=== PATIENT | female | born 1975 | race Caucasian/White ===

== ENCOUNTER 2023-09-27 23:08 | Inpatient (IN) | payer MEDICAID, SELFPAY ==
[2023-09-27 23:09] VITALS: BP 115/63; PULSE 78; RESP 16; TEMP 36.2; O2SAT 98
--- NOTE | 2023-09-27 23:21 | RAD_ITS ---
INDICATION: injury EXAMINATION/TECHNIQUE: X-RAY - XR Hip Unilateral with Pelvis when performed; AP pelvis with AP and crosstable lateral left femur COMPARISON: None FINDINGS: HIPS: Left femoral intertrochanteric fracture with cephalad displacement. Left femoral head remains aligned with the acetabulum. No evidence of pelvic fracture. PELVIC BONES: No displaced fracture, destructive or sclerotic lesions. Note that overlapping bowel shadows may however obscure fine detail. Sacroiliac joints are unremarkable. No widening of the pubic symphysis. SOFT TISSUES: No soft tissue swelling or gas. RAD/HIP, UNI W/ Pelvis 2-3 Views IMPRESSION: Displaced left intertrochanteric fracture. Electronically Signed: Jose Alberto Brown MD at 0:15 EDT ,
--- NOTE | 2023-09-27 23:21 | EDS_ITS ---
HPI History of Present Illness Chief Complaint: Fall Informant: patient and spouse/S.O. Narrative Narrative: 47-year-old female presenting to the emergency room with left hip pain. Patient was down at rib fest when her daughter bumped into significant other who then bumped into her and she fell down onto the left hip. She notes some abrasions to the left elbow. She notes pain in the left hip and is unable to bear weight. states he believes she dislocated her hip. She has been consuming alcohol most of the evening. She last had solid food intake about 2 to 3 hours ago. Patient is not a patient of any local orthopedist [facility] Medical History (Updated 09/28/23 @ 00:[address] Katie Darling MD) Seizure in childhood Tobacco use Alcohol abuse Kidney stones COPD (chronic obstructive pulmonary disease) Hypertension Home Medications ?Medication ?Instructions ?Recorded ?Last Taken ?Type NK 09/28/23 Unknown History Allergy/AdvReac Type Severity Reaction Status Date / Time [place] And Derivatives AdvReac Itching Verified 09/27/23 23:09 tramadol (From Ultram) AdvReac Rash Verified 09/27/23 23:09 Family History (Updated 09/28/23 @ 00:[address] Katie Darling MD) Mother CAD (coronary artery disease) COPD (chronic obstructive pulmonary disease) Heart disease Hypertension Myocardial infarction Father Alcoholic cirrhosis of liver Alcohol abuse Surgical History (Updated 09/28/23 @ 00:[address] Katie Darling MD) History of hysterectomy Social History (Updated 09/28/23 @ 00:[address] Katie Darling MD) household members: family Smoking Status: Current every day smoker tobacco type: cigarettes Smoking packs per day: 1 Smoking cigarettes per day: 20.0 alcohol intake: current alcohol intake frequency: 3 or more drinks per day details: Notes at least 2-3, 12 ounce beers daily. substance use type: does not use ROS ROS ED Constitutional Constitutional ED: Denies chills, fever(s) or weight loss Eyes Eyes: Denies change in vision or diplopia ENT ENT ED: Denies ear pain, rhinorrhea or sore throat Cardiovascular Cardiovascular: Denies chest pain, orthopnea, palpitations or racing heartbeat Respiratory/Chest Respiratory/Chest: Denies cough, dyspnea or orthopnea Gastrointestinal Gastrointestinal: Denies abdominal pain, diarrhea, nausea or vomiting Genitourinary Genitourinary ED: Denies dysuria, hematuria or urinary frequency Musculoskeletal Musculoskeletal: Reports other Details: Left hip pain ; Denies arthralgias, back pain, myalgias or neck pain Integumentary Reports Abrasions; Denies abscess or rash Neurologic Neurologic: Denies headache(s) or weakness Psychiatric Psychiatric: Denies anxiety, depression, suicidal ideation or suicidal thoughts Endocrine Endocrinology: Denies polydipsia, polyphagia or polyuria Allergic/Immunologic Allergic/Immunologic ED: Denies mouth swelling, tongue swelling or urticaria EXAM Physical Exam Const Vital Signs: 09/27/23 23:09 09/27/23 23:38 Temperature 97.1 F L Temperature Source Temporal Pulse Rate 78 Respiratory Rate 16 Blood Pressure 115/63 Blood Pressure Mean 80 Pulse Ox 98 Oxygen Delivery Method Room Air Room Air Positive well nourished and well developed General Appearance ED: well developed HEENT Reports normocephalic, head/scalp atraumatic and moist mucous membranes Eyes PERRL and EOMs intact bilaterally Neck no lymphadenopathy, supple and no JVD Resp normal respiratory effort and clear to auscultation bilaterally Cardio regular rate, regular rhythm and no murmurs GI normal to inspection, nondistended, normoactive bowel sounds and non-tender Palpation: soft Back/Spine no CVA tenderness and normal ROM Extremity Extremity Narrative: Superficial abrasions to the left elbow. Patient is pain over the left hip. Normal dorsalis pedis posterior tibial pulse. She is able to wiggle the toes. General Extremety ED: Negative for edema General Extremity: Negative for edema Neuro oriented x3 and CN's II-XII intact bilaterally Neuro Narrative: Patient had slurred speech and a neuroexam consistent with acute alcohol intoxication Sensorium / Orientation: alert Motor Exam: strength 5/5 throughout Psych mental status grossly normal Mood & Affect: Negative for depressed or tearful Skin no rashes or lesions noted and no wounds MDM MDM MDM Narrative Medical decision making narrative: Differential diagnosis includes but not limited to hip contusion traumatic bursitis fracture dislocation alcohol intoxication My independent interpretation of the plain films of left hip and pelvis is a displaced left intertrochanteric hip fracture. Preoperative labs will be obtained including alcohol level. Her EKG is a normal sinus rhythm. I spoke with both on-call orthopedics Dr. Mock and her hospitalist Dr. Darling. Plan would be for surgery in the morning. Dr. Mock called back and spoke to me requesting a CT of the hip for possible pathologic fracture. I put the indication on the CT rule out pathologic fracture. The radiologist specifically states No aggressive osseous lesion. Therefore the patient will be admitted here. History & Record Review Discussion w/independent historian: Patient Lab Data Attestation: I reviewed the patient's lab results. Labs: Laboratory Results - last 24 hr 09/27/23 23:40 WBC 9.8 RBC 4.48 Hgb 14.5 Hct 43.5 MCV 97.1 MCH 32.4 H MCHC 33.3 RDW Std Deviation 44.6 H RDW Coeff of Fahad 12.3 Plt Count 243 MPV 11.0 Immature Gran % (Auto) 0.200 Neut % (Auto) 43.8 L Lymph % (Auto) 49.5 H [place] % (Auto) 4.4 Eos % (Auto) 0.9 Baso % (Auto) 1.2 H Absolute Neuts (auto) 4.3 Absolute Lymphs (auto) 4.84 H Nucleated RBC % 0 PT 11.7 INR 0.9 APTT 23.3 L Sodium 137 Potassium 3.6 Chloride 104 Carbon Dioxide 23.0 Anion Gap 10 BUN 9 Creatinine 0.84 Estim Creat Clear Calc 55.86 Est GFR (MDRD) Af Amer 93 Est GFR (MDRD) Non-Af 77 BUN/Creatinine Ratio 10.7 Glucose 105 Calcium 8.8 Phosphorus 3.4 Magnesium 2.3 Total Bilirubin 0.40 Direct Bilirubin 0.14 AST 28 ALT 23 Alkaline Phosphatase 74 Total Protein 7.3 Albumin 4.0 Globulin 3.3 Serum , Qual NEGATIVE Ethyl Alcohol 294.0 Radiography Diagnostic Testing: Clinical Impression(s) from Imaging Studies Hip/Pelvis X-Ray 09/27/23 23:21 IMPRESSION: Displaced left intertrochanteric fracture. Electronically Signed: Jose Alberto Brown MD at 0:15 EDT , Clinical Impression(s) from Imaging Studies Hip/Pelvis X-Ray 09/27/23 23:21 IMPRESSION: Displaced left intertrochanteric fracture. Electronically Signed: Jose Alberto Brown MD at 0:15 EDT , CT LEFT LOWER EXTREMITY CLINICAL INDICATION: FALL TECHNIQUE: Axial CT images of the LEFT lower extremity was performed without IV contrast material. Coronal and sagittal reformats were provided. The protocol utilizes one or more of the following dose reduction techniques: automated exposure control, adjustment of mA and/or kV according to patient size,and/or use of iterative reconstruction technique. RADIATION DOSAGE (If Supplied By Facility): CTDIvol = ( 12.23 ) mGy, DLP = ( 323.61 ) mGycm COMPARISON: None FINDINGS: Soft Tissues: Left gluteus medius muscular thickening, partially from laxity due to cephalad displacement of bone, with likely possible small intramuscular hematoma. No subcutaneous emphysema. No radiodense soft tissue foreign body. Bones: Left femoral intertrochanteric fracture with mild comminution at the lesser trochanter and cephalad displacement. Left femoral head remains aligned with the acetabulum. Normal pubic symphysis and left sacroiliac joint alignment. No aggressive osseous lesion. IMPRESSION: Intertrochanteric left femoral fracture with cephalad displacement Electronically Signed: Jose Alberto Brown MD at 2:19 EDT Reading Location ID and State: [facility] / [place] Tel , Service support , EKG Initial EKG: Attestation: I personally reviewed and interpreted this EKG as follows: Comments: Normal sinus rhythm ventricular rate of 73 bpm Management Discussion w/another healthcare provider: Hospitalist (Dr. Darling) and Casino Host (Dr Karoline Mock) Discharge Plan Dx/Rx/DC Orders Clinical Impression: Fall, Abrasion of elbow, left, Alcohol intoxication, Closed intertrochanteric fracture of left femur Disposition Disposition: Acute Care Hospital [facility]
--- NOTE | 2023-09-27 23:33 | EKG12_ITS ---
Test Reason : FALL Blood Pressure : / mmHG Vent. Rate : 073 BPM Atrial Rate : 073 BPM P-R Int : 150 ms QRS Dur : 066 ms QT Int : 410 ms P-R-T Axes : 080 082 086 degrees QTc Int : 451 ms Normal sinus rhythm Septal infarct , age undetermined Abnormal ECG Confirmed by MINDY HERRING, JIM ([id number]), health editor MECHELLE LUCAS ([id number]) on 09/29/2023 6:54:21 AM Referred By: Confirmed By:JIM GUILLEN MD
[2023-09-27 23:45] VITALS: BMI 16.8
[2023-09-27] MEDS: Morphine 4 MG/ML Syringe IV (23:48)
[2023-09-27] MEDS: Ondansetron 4 MG/2 ML Vial IV (23:48)
[2023-09-28] VITALS (15 sets, daily range): BP systolic 133–173; BP diastolic 66–114; PULSE 68–93; RESP 14–18; TEMP 36.4–37.1; O2SAT 92–100; BMI 16.8
[2023-09-28 00:03] LABS: Absolute Lymphocyte Count 4.84 X10^3/uL (0.83-4.51); Absolute Neutrophil Count 4.3 X10^3/uL (2.0-7.7); Basophil# 0.12 X10^3/uL; Basophil% 1.2 % (0-1); Eosinophil# 0.09 X10^3/uL; Eosinophils% 0.9 % (0-5); Hematocrit 43.5 % (37-47); Hemoglobin 14.5 g/dL (12.0-15.0); Lymphocyte # 4.84 X10^3/ul (0.83-4.51); Lymphocyte % 49.5 % (19-41); Mean Corp Hgb Conc 33.3 g/dL (32-36); Mean Corpuscular Hgb 32.4 pg (27.0-32.0); Mean Corpuscular Volume 97.1 fL (81-99); Monocyte# 0.43 X10^3/uL; Monocyte% 4.4 % (0-10); NRBC Flagged by Analyzer 0 % (0-5); Neutrophil # 4.28 X10^3/uL (2.7-7.7); Neutrophil % 43.8 % (47-70); Platelet Count 243 K/mm3 (150-450); RBC Distribution Width CV 12.3 % (11.6-14.6); RBC Distribution Width SD 44.6 fl (35.1-43.9); Red Blood Count 4.48 M/mm3 (4.2-5.4); White Blood Count 9.8 K/mm3 (4.4-11.0)
[2023-09-28 00:26] LABS: International Normalized Ratio 0.9; Partial Thromboplast Time 23.3 Seconds (24.1-36.2); Prothrombin Time (Protime)PT. 11.7 SECONDS (11.7-14.9)
--- NOTE | 2023-09-28 00:26 | HP.PCM.HOS_ITS ---
HPI - General General Date of Admission: 09/28/23 Date of Service: 09/28/23 Chief Complaint: Fall, intractable L hip pain. HPI Narrative The patient is a 47 y/o F w/ PMHx: Seizure disorder in her youth, recently per her diagnosed HTN not on regimen, COPD, Tobacco use, Hx Nephrolithiasis, EtOH abuse (2-3, 12 ounces beers daily) who presents to the [facility] ED on 09/28/23 with history of mechanical fall unfortunately while she was down at the rib festival at the [employer] was bumped into and fell down onto her left hip with significant debility and severe intractable pain following with inability to bear weight with significant alcohol intake reported at the event. Given significant debility, inability bear weight and intractable pain prompted ED evaluation. Patient notes currently pain 7-8 out of 10 in severity. She notes pain is more sharp and severe with any movement of her left lower extremity. Patient recently moved back to [place], [place] approximately 2 months prior and is yet established with any primary care physician. She is currently not taking any medications. Workup in the ED included T97.1, heart rate 78, BP 115/63, respiratory rate 16, 98% on room air, CBC with WC 9.8, hemoglobin 14.5, platelet 243 with lymphocytosis, pending coags and CMP as well as test and ethyl alcohol level upon requested evaluation of patient, plain film of the left hip and pelvis with a displaced left intertrochanteric fracture. In the ED patient ministered Zofran 4 mg IV x 1 and morphine 4 mg IV x 1. ED discussed case with orthopedic surgeon Dr. Mock and he recommended CT of the hip to assure no evidence of any pathological fracture. If this is the case patient he notes will need to be transferred from the ED to tertiary facility otherwise patient will be admitted to [facility] for further treatment and evaluation of hip fracture. [facility] Medical History (Updated 09/28/23 @ 00:[address] Katie Darling MD) Seizure in childhood Tobacco use Alcohol abuse Kidney stones COPD (chronic obstructive pulmonary disease) Hypertension Home Medications ?Medication ?Instructions ?Recorded ?Last Taken ?Type NK 09/28/23 Unknown History Allergy/AdvReac Type Severity Reaction Status Date / Time [place] And Derivatives AdvReac Itching Verified 09/27/23 23:09 tramadol (From Ultram) AdvReac Rash Verified 09/27/23 23:09 Family History (Updated 09/28/23 @ 00:[address] Katie Darling MD) Mother CAD (coronary artery disease) COPD (chronic obstructive pulmonary disease) Heart disease Hypertension Myocardial infarction Father Alcoholic cirrhosis of liver Alcohol abuse Surgical History (Updated 09/28/23 @ 00:[address] Katie Darling MD) History of hysterectomy Social History (Updated 09/28/23 @ 00:[address] Katie Darling MD) household members: family Smoking Status: Current every day smoker tobacco type: cigarettes Smoking packs per day: 1 Smoking cigarettes per day: 20.0 alcohol intake: current alcohol intake frequency: 3 or more drinks per day details: Notes at least 2-3, 12 ounce beers daily. substance use type: does not use ROS ROS Narrative Admission Review of Systems: CONSTITUTIONAL: No weight loss, fever, chills, + weakness or fatigue. HEENT: Eyes: No visual loss, blurred vision, double vision or yellow sclerae. Ears, Nose, Throat: No hearing loss, sneezing, congestion, runny nose or sore throat. SKIN: No rash or itching, lesions, wounds. CARDIOVASCULAR: No chest pain, chest pressure or chest discomfort, palpitations, edema, orthopnea, syncopal events. RESPIRATORY: No shortness of breath, cough or sputum, wheezing, hemoptysis. GASTROINTESTINAL: No anorexia, nausea, vomiting or diarrhea, abdominal pain, melena, BRBPR. GENITOURINARY: No dysuria, frequency, urgency or retention. NEUROLOGICAL: No headache, dizziness, syncope, paralysis, ataxia, numbness or tingling in the extremities, focal weakness, change in bowel or bladder control, seizure. MUSCULOSKELETAL: + muscle, back pain, joint pain or stiffness. HEMATOLOGIC: No anemia, bleeding or bruising. LYMPHATICS: No enlarged nodes. No history of splenectomy. PSYCHIATRIC: No history of depression or anxiety. ENDOCRINOLOGIC: No reports of sweating, cold or heat intolerance. No polyuria or polydipsia. ALLERGIES: No history of asthma, hives, eczema or rhinitis. Vital Signs Vital Signs Vital Signs: 09/27/23 23:09 09/27/23 23:38 Temperature 97.1 F L Temperature Source Temporal Pulse Rate 78 Respiratory Rate 16 Blood Pressure 115/63 Blood Pressure Mean 80 Pulse Ox 98 Oxygen Delivery Method Room Air Room Air Weight Weight: 95 lb 3.835 oz Body Mass Index (BMI) 16.8 Physical Exam Narrative Physical Examination: General: Awake, alert, oriented x 3 and cooperative, laying in the ED bed, notes pain to the hip 8 out of 10 in severity. Skin: Normal color, normal turgor, no icterus, no cyanosis except various abrasions, ecchymoses with recent fall. HEENT: AT/NC, EOMI, PERRLA, mildly dry MM, no carotid bruits or JVD noted. Lungs: Mildly diminished, greater bases, proper effort, no rales, ronchi or wheezing. Heart: Regular rate and rhythm; no gallop, rub audible. Abdomen: Soft, thin habitus, NTTP, ND, distant normal BS, no appreciated HSM. Extremities: No cyanosis, no clubbing, peripheral pulses intact, left hip externally rotated. Neurological: Patient awake, alert, oriented as noted, cognitive function intact; pupils equally reactive to light and accommodation, cranial nerves grossly normal, moving all 4 extremities except left lower extremity extremely limited but able to move toes given fall with left hip fracture, strength accordingly severely globally decreased. Psychiatric: Affect appears uncomfortable, fatigued, no acute evidence of depressive or anxiety feelings. Results Lab / Micro Data 09/27/23 23:40 09/27/23 23:40 Labs: Laboratory Results - last 24 hr 09/27/23 23:40: WBC 9.8, RBC 4.48, Hgb 14.5, Hct 43.5, MCV 97.1, MCH 32.4 H, MCHC 33.3, RDW Std Deviation 44.6 H, RDW Coeff of Fahad 12.3, Plt Count 243, MPV 11.0, Immature Gran % (Auto) 0.200, Neut % (Auto) 43.8 L, Lymph % (Auto) 49.5 H, [place] % (Auto) 4.4, Eos % (Auto) 0.9, Baso % (Auto) 1.2 H, Absolute Neuts (auto) 4.3, Absolute Lymphs (auto) 4.84 H, Nucleated RBC % 0 Imaging Radiology Impression Hip/Pelvis X-Ray 09/27/23 23:21 IMPRESSION: Displaced left intertrochanteric fracture. Electronically Signed: Jose Alberto Brown MD at 0:15 EDT Reading Location ID and State: [facility], [id number] / [place] Tel , Service support , Assessment & Plan Assessment/Plan (1) Closed intertrochanteric fracture of left femur: PLAN: Plan The patient is a 47 y/o F w/ PMHx: Seizure disorder in her youth, recently per her diagnosed HTN not on regimen, COPD, Tobacco use, Hx Nephrolithiasis, EtOH abuse (2-3, 12 ounces beers daily) who presents to the [facility] ED on 09/28/23 with history of mechanical fall unfortunately [facility] was [facility] and fell down onto her left hip with significant debility and severe intractable pain following with inability to bear weight with significant alcohol intake reported at the event. Given significant debility, inability bear weight and intractable pain prompted ED evaluation. #1. Left hip pain s/p mechanical fall w/ left intertrochanteric hip fracture: Plain film noting left intertrochanteric hip fracture. Orthopedic surgery consulted from ED and given appearance they are concerned that it could potentially be a pathologic fracture thus CT has been requested of the hip and if there is no evidence of any pathologic fracture that would require tertiary facility transfer per discussion with orthopedic surgery then would plan to admit to [facility], maintain NPO, continue gentle IVFs, riggs placement, monitor I/Os, frequent positioning, fall precautions, PRN pain, anti-emetic regimen. PT/OT following operative intervention. CM consulted for discharge planning. Per NSQIP guidelines patient is low risk for perioperative cardiac event, agree with progression to OR for operative intervention if CT hip without acute concerning findings that would require transfer to tertiary facility. EKG with SR with nospecific changes without acute evidence of ischemia. #2. Suspected acute alcohol intoxication w/ EtOH abuse: Ethyl alcohol level pending upon evaluation but from discussion patient with significant alcohol intake during the rib festival and she reports at least 2 to 312 ounce beers daily but denies any alcohol withdrawal symptoms when she goes without. Will aggressively hydrate, will obtain magnesium and phosphorus levels, will maintain on CIWA protocol and placed on thiamine/folic acid/multivitamin. #3. Chronic COPD: Patient is not on any medications, will maintain in the interim for maximization on ATC budesonide therapy, PRN albuterol, HOB, IS parameters. #4. Chart reported history hypertension: Patient does admit to a history of hypertension but is not on any medication, currently BP normal range, will have IV hydralazine in interim and if it is elevated we will add regimen and of course she will need to establish with PCP in [place] to follow at discharge. #5. Seizure disorder, noted in her youth: Patient reports a seizure at the age of 15 which from her description sounds as though it was a grand mal seizure but she is never had any other seizure activity and is not on antiepileptic medication. #6. Tobacco Abuse: Encouraged cessation, smokes 1/2-1 ppd, inpatient consultation per RT, NR if desired. #7. DVT prophylaxis: SCDs, hold chemoprophylaxis for planned operative intervention. Charges/Coding Visit Charges Inpatient E&M: 69763 Init Hosp L3
[2023-09-28 00:30] LABS: AST(SGOT) 28 U/L (15-37); Alanine Aminotransfer ALT/SGPT 23 U/L (13-56); Alkaline Phosphatase 74 U/L (45-117); Anion Gap 10 (5-15); BUN 9 mg/dL (7-18); BUN/Creat Ratio 10.7 RATIO (10-20); Bilirubin, Direct 0.14 mg/dL (0.00-0.30); Calcium,Total 8.8 mg/dL (8.5-10.1); Chloride 104 mmol/L (98-107); Creatinine, Serum 0.84 mg/dL (0.55-1.02); EST Glomerular Filtration Rate 77 mL/min (>60); Est Glom Filt Rate - Afr Amer 93 mL/min (>60); Estimated Creatinine Clearance 55.86 ml/min; Globulin 3.3 g/dL (2.2-4.2); Glucose 105 mg/dL (74-106); Potassium 3.6 mmol/L (3.5-5.1); Protein, Total 7.3 g/dL (6.4-8.2); Sodium Level 137 mmol/L (136-145)
--- NOTE | 2023-09-28 00:37 | CT_ITS ---
CT LEFT LOWER EXTREMITY CLINICAL INDICATION: FALL TECHNIQUE: Axial CT images of the LEFT lower extremity was performed without IV contrast material. Coronal and sagittal reformats were provided. The protocol utilizes one or more of the following dose reduction techniques: automated exposure control, adjustment of mA and/or kV according to patient size,and/or use of iterative reconstruction technique. RADIATION DOSAGE (If Supplied By Facility): CTDIvol = ( 12.23 ) mGy, DLP = ( 323.61 ) mGycm COMPARISON: None FINDINGS: Soft Tissues: Left gluteus medius muscular thickening, partially from laxity due to cephalad displacement of bone, with likely possible small intramuscular hematoma. No subcutaneous emphysema. No radiodense soft tissue foreign body. Bones: Left femoral intertrochanteric fracture with mild comminution at the lesser trochanter and cephalad displacement. Left femoral head remains aligned with the acetabulum. Normal pubic symphysis and left sacroiliac joint alignment. No aggressive osseous lesion. CT/Extremity Lower without Contra IMPRESSION: Intertrochanteric left femoral fracture with cephalad displacement Electronically Signed: Jose Alberto Brown MD at 2:19 EDT ,
[2023-09-28 00:44] LABS: Internal QC Validated? YES +Cl - CLEAR BKGD; Pregnancy, Serum, hCG Quali. NEGATIVE Negative; Record Kit Lot#, Serum Preg. 735774
--- NOTE | 2023-09-28 00:52 | RAD_ITS ---
INDICATION: PRE OP EXAMINATION/TECHNIQUE: X-RAY - XR Chest 1 View COMPARISON: December 09, 2007. FINDINGS: LINES/DEVICES: None. LUNGS: Lungs symmetrically hyperexpanded and hyperlucent with coarsened interstitium. No consolidation, edema or effusion. No pneumothorax. MEDIASTINUM AND CARDIOVASCULAR STRUCTURES: Cardiac silhouette not enlarged. BONES AND SOFT TISSUES: Unremarkable. RAD/Chest 1 View IMPRESSION: Chronic obstructive pulmonary disease. No radiographic evidence of acute cardiopulmonary process. Electronically Signed: Jose Alberto Brown MD at 3:17 EDT ,
[2023-09-28] MEDS: Morphine 2 MG/ML Syringe IV (01:19)
[2023-09-28 01:25] LABS: Magnesium 2.3 mg/dL (1.6-2.6); Phosphorus 3.4 mg/dL (2.5-4.9)
[2023-09-28] MEDS: Morphine 4 MG/ML Syringe IV ×5 (04:06→17:01)
[2023-09-28] MEDS: 0.9% Normal Saline (1000mL) 1,000 ML 999 ML IV (04:07)
[2023-09-28 05:09] LABS: Absolute Lymphocyte Count 3.18 X10^3/uL (0.83-4.51); Absolute Neutrophil Count 8.6 X10^3/uL (2.0-7.7); Basophil# 0.11 X10^3/uL; Basophil% 0.9 % (0-1); Eosinophil# 0.03 X10^3/uL; Eosinophils% 0.2 % (0-5); Hematocrit 38.6 % (37-47); Hemoglobin 12.6 g/dL (12.0-15.0); Lymphocyte # 3.18 X10^3/ul (0.83-4.51); Lymphocyte % 24.8 % (19-41); Mean Corp Hgb Conc 32.6 g/dL (32-36); Mean Platelet Vol. 11.4 fl (6.2-12.0); Monocyte# 0.89 X10^3/uL; Monocyte% 6.9 % (0-10); NRBC Flagged by Analyzer 0 % (0-5); Neutrophil # 8.57 X10^3/uL (2.7-7.7); Neutrophil % 66.7 % (47-70); Platelet Count 218 K/mm3 (150-450); RBC Distribution Width CV 12.2 % (11.6-14.6); RBC Distribution Width SD 44.4 fl (35.1-43.9); Red Blood Count 3.94 M/mm3 (4.2-5.4); White Blood Count 12.8 K/mm3 (4.4-11.0)
[2023-09-28 05:50] LABS: ALB/GLOB Ratio 1.2 RATIO (0.9-2.4); AST(SGOT) 28 U/L (15-37); Alanine Aminotransfer ALT/SGPT 25 U/L (13-56); Albumin, Serum 3.7 g/dL (3.2-5.0); Alkaline Phosphatase 74 U/L (45-117); Anion Gap 9 (5-15); BUN 8 mg/dL (7-18); BUN/Creat Ratio 10.9 RATIO (10-20); Calcium,Total 8.6 mg/dL (8.5-10.1); Chloride 108 mmol/L (98-107); Creatinine, Serum 0.74 mg/dL (0.55-1.02); EST Glomerular Filtration Rate 89 mL/min (>60); Est Glom Filt Rate - Afr Amer 108 mL/min (>60); Estimated Creatinine Clearance 63.26 ml/min; Globulin 3.1 g/dL (2.2-4.2); Glucose 95 mg/dL (74-106); Potassium 3.8 mmol/L (3.5-5.1); Protein, Total 6.8 g/dL (6.4-8.2); Sodium Level 139 mmol/L (136-145)
[2023-09-28] MEDS: 0.9% Normal Saline (1000mL) 1,000 ML 100 ML IV (06:10)
--- NOTE | 2023-09-28 07:44 | PN.HOSP_ITS ---
Reason for Visit Reason for Visit: Diagnoses Displaced intertrochanteric fracture of left femur, initial encounter for closed fracture (09/28/23) Objective Data Objective Data Vital Signs: Vital Signs Temp Pulse Resp BP Pulse Ox O2 Del Method 98 F 68 16 133/76 H 95 Room Air 09/28/23 01:09 09/28/23 01:09 09/28/23 02:50 09/28/23 01:09 09/28/23 07:38 09/28/23 07:38 Oxygen Delivery Method Room Air Weight: 95 lb 0.308 oz Body Mass Index (BMI) 16.8 Intake & Output: Intake and Output for Last 24 Hours 09/26/23 09/27/23 09/28/23 23:59 23:59 23:59 Intake Total 1000 / 1000 Output Total 800 / 800 Balance 200 / 200 Lab / Micro Data 09/28/23 04:20 09/28/23 04:20 Labs: Laboratory Results - last 24 hr 09/27/23 23:40: WBC 9.8, RBC 4.48, Hgb 14.5, Hct 43.5, MCV 97.1, MCH 32.4 H, MCHC 33.3, RDW Std Deviation 44.6 H, RDW Coeff of Fahad 12.3, Plt Count 243, MPV 11.0, Immature Gran % (Auto) 0.200, Neut % (Auto) 43.8 L, Lymph % (Auto) 49.5 H, Forrest % (Auto) 4.4, Eos % (Auto) 0.9, Baso % (Auto) 1.2 H, Absolute Neuts (auto) 4.3, Absolute Lymphs (auto) 4.84 H, Nucleated RBC % 0, PT 11.7, INR 0.9, APTT 23.3 L, Sodium 137, Potassium 3.6, Chloride 104, Carbon Dioxide 23.0, Anion Gap 10, BUN 9, Creatinine 0.84, Estim Creat Clear Calc 55.86, Est GFR (MDRD) Af Amer 93, Est GFR (MDRD) Non-Af 77, BUN/Creatinine Ratio 10.7, Glucose 105, Calcium 8.8, Phosphorus 3.4, Magnesium 2.3, Total Bilirubin 0.40, Direct Bilirubin 0.14, AST 28, ALT 23, Alkaline Phosphatase 74, Total Protein 7.3, Albumin 4.0, Globulin 3.3, Serum , Qual NEGATIVE, Ethyl Alcohol 294.0 09/28/23 01:52: Blood Type A POSITIVE, Antibody Screen NEGATIVE 09/28/23 04:20: WBC 12.8 H, RBC 3.94 L, Hgb 12.6, Hct 38.6, MCV 98.0, MCH 32.0, MCHC 32.6, RDW Std Deviation 44.4 H, RDW Coeff of Fahad 12.2, Plt Count 218, MPV 11.4, Immature Gran % (Auto) 0.500, Neut % (Auto) 66.7, Lymph % (Auto) 24.8, Forrest % (Auto) 6.9, Eos % (Auto) 0.2, Baso % (Auto) 0.9, Absolute Neuts (auto) 8.6 H, Absolute Lymphs (auto) 3.18, Nucleated RBC % 0, Sodium 139, Potassium 3.8, Chloride 108 H, Carbon Dioxide 22.0, Anion Gap 9, BUN 8, Creatinine 0.74, Estim Creat Clear Calc 63.26, Est GFR (MDRD) Af Amer 108, Est GFR (MDRD) Non-Af 89, BUN/Creatinine Ratio 10.9, Glucose 95, Calcium 8.6, Total Bilirubin 0.50, AST 28, ALT 25, Alkaline Phosphatase 74, Total Protein 6.8, Albumin 3.7, Globulin 3.1, Albumin/Globulin Ratio 1.2 Radiography Diagnostic Testing: Radiology Impression Hip/Pelvis X-Ray 09/27/23 23:21 IMPRESSION: Displaced left intertrochanteric fracture. Electronically Signed: Jose Alberto Brown MD at 0:15 EDT Reading Location ID and State: [facility] / [place] Tel , Service support , Lower Extremity CT 09/28/23 00:37 IMPRESSION: Intertrochanteric left femoral fracture with cephalad displacement Electronically Signed: Jose Alberto Brown MD at 2:19 EDT Reading Location ID and State: [facility] / [place] Tel , Service support , Chest X-Ray 09/28/23 00:52 IMPRESSION: Chronic obstructive pulmonary disease. No radiographic evidence of acute cardiopulmonary process. Electronically Signed: Jose Alberto Brown MD at 3:17 EDT , Physical Exam Narrative Seen and examined. She works in [email or web address] and states she was smoking a pack per day since since age of 11 but recently increased to 2 pack/day. History of COPD. Physical exam General: Alert, Oriented x3, Cooperative HEENT: Atraumatic, PERRLA, EOMI, Normocephalic Oral: No Gingival or Mucosal Lesions/ Ulcerations Neck: Supple, No JVD, Negative Carotid Bruits Chest wall/Lungs: Air entry diminished in bilateral lung bases. Bilateral fine expiratory rhonchi. Cardiovascular: Regular rate, Regular Rhythm, Normal S1, Normal S2, No M/G/R Abdomen: Bowel Sounds Present, Soft, Non Tender, Non-Distended : No dysuria. No renal angle tenderness. No suprapubic tenderness. Extremities: No edema, Capillary Refill Less than 3 Seconds Skin: No rashes, No breakdown Musculoskeletal: Tenderness over left hip groin region, greater trochanter and ischial region. LLE flexed and externally rotated. Neurological: Cranial nerves II-XII grossly intact, DTR 2+/4. No acute focal neurological deficit. Psych/Mental Status: Normal Affect, Appropriate. Assessment & Plan Assessment/Plan (1) Closed intertrochanteric fracture of left femur: PLAN: Plan The patient is a 47 y/o F was admitted with left hip pain and abrasion on left elbow after she fell down on her left hip after a festival at the [employer]. She was unable to bear weight on left. Patient also has been drinking alcohol most of the evening. #1. Left hip pain s/p mechanical fall with consequent left intertrochanteric femoral fracture with cephalad displacement: [facility] Lower extremity CT was done to rule out pathological fracture but no aggressive lesions seen. Left femoral head remains in acetabulum aligned but left femoral intertrochanteric fracture with mild comminution at the lesser trochanter and cephalad displacement. Orthopedic surgery is consulted. Supportive management for pain control, antiemetics and fall precaution. PT/OT following operative intervention. CM consulted for discharge planning. Per NSQIP guidelines patient is low risk for perioperative cardiac event, agree with progression to OR for operative intervention if CT hip without acute concerning findings that would require transfer to tertiary facility. EKG with SR with nospecific changes without acute evidence of ischemia. #2. Suspected acute alcohol intoxication w/ EtOH abuse: Ethyl alcohol level pending upon evaluation but from discussion patient with significant alcohol intake during the [place] and she reports at least 2 to 312 ounce beers daily but denies any alcohol withdrawal symptoms when she goes without. Will aggressively hydrate, will obtain magnesium and phosphorus levels, will maintain on CIWA protocol and placed on thiamine/folic acid/multivitamin. #3. COPD with chronic active smoking 2 pack/day: Patient is not on any medications, advised aggressive and intensive incentive spirometry. Maintenance inhaler, as needed DuoNeb, incentive spirometry, Pep and Mucinex DM. #4. Chronic essential hypertension: Patient not on antihypertensive medication. BP 133/76, 148/70. IV hydralazine interim as needed for SBP more than 180 mmHg but if blood pressure persistently elevated will need schedule antihypertensive medication. #5. Seizure disorder, noted in her youth: Patient reports a seizure at the age of 15 which from her description sounds as though it was a grand mal seizure but she is never had any other seizure activity and is not on antiepileptic medication. #6. Tobacco Abuse: Encouraged cessation, smokes 2 pack/day on nicotine patch. Advised quitting #7. DVT prophylaxis: SCDs, hold chemoprophylaxis for planned operative intervention. Laboratory Results 09/27/23 23:40: WBC 9.8, RBC 4.48, Hgb 14.5, Hct 43.5, MCV 97.1, MCH 32.4 H, MCHC 33.3, RDW Std Deviation 44.6 H, RDW Coeff of Fahad 12.3, Plt Count 243, MPV 11.0, Immature Gran % (Auto) 0.200, Neut % (Auto) 43.8 L, Lymph % (Auto) 49.5 H, Forrest % (Auto) 4.4, Eos % (Auto) 0.9, Baso % (Auto) 1.2 H, Absolute Neuts (auto) 4.3, Absolute Lymphs (auto) 4.84 H, Nucleated RBC % 0, PT 11.7, INR 0.9, APTT 23.3 L, Sodium 137, Potassium 3.6, Chloride 104, Carbon Dioxide 23.0, Anion Gap 10, BUN 9, Creatinine 0.84, Estim Creat Clear Calc 55.86, Est GFR (MDRD) Af Amer 93, Est GFR (MDRD) Non-Af 77, BUN/Creatinine Ratio 10.7, Glucose 105, Calcium 8.8, Phosphorus 3.4, Magnesium 2.3, Total Bilirubin 0.40, Direct Bilirubin 0.14, AST 28, ALT 23, Alkaline Phosphatase 74, Total Protein 7.3, Albumin 4.0, Globulin 3.3, Serum , Qual NEGATIVE, Ethyl Alcohol 294.0 09/28/23 01:52: Blood Type A POSITIVE, Antibody Screen NEGATIVE 09/28/23 04:20: WBC 12.8 H, RBC 3.94 L, Hgb 12.6, Hct 38.6, MCV 98.0, MCH 32.0, MCHC 32.6, RDW Std Deviation 44.4 H, RDW Coeff of Fahad 12.2, Plt Count 218, MPV 11.4, Immature Gran % (Auto) 0.500, Neut % (Auto) 66.7, Lymph % (Auto) 24.8, Forrest % (Auto) 6.9, Eos % (Auto) 0.2, Baso % (Auto) 0.9, Absolute Neuts (auto) 8.6 H, Absolute Lymphs (auto) 3.18, Nucleated RBC % 0, Sodium 139, Potassium 3.8, Chloride 108 H, Carbon Dioxide 22.0, Anion Gap 9, BUN 8, Creatinine 0.74, Estim Creat Clear Calc 63.26, Est GFR (MDRD) Af Amer 108, Est GFR (MDRD) Non-Af 89, BUN/Creatinine Ratio 10.9, Glucose 95, Calcium 8.6, Total Bilirubin 0.50, AST 28, ALT 25, Alkaline Phosphatase 74, Total Protein 6.8, Albumin 3.7, Globulin 3.1, Albumin/Globulin Ratio 1.2 Charges/Coding Visit Charges Inpatient E&M: 37304 Subs Hosp L2
--- NOTE | 2023-09-28 08:00 | RAD_ITS ---
STUDY: INTRAOPERATIVE FLUOROSCOPY TECHNIQUE: The examination was performed with referring physician in attendance. Under fluoroscopic observation, fluoroscopic images were obtained. Radiologist was not present for the study. Radiologist did not perform the procedure. This dictation is for documentation of the radiation dosage only. There is no interpretation of the images. TOTAL NUMBER OF IMAGES: 1 COMPARISON: None RADIATION DOSE: 13.15 mGy FLUOROSCOPY TIME: 109.4 seconds REASON FOR EXAM: ORIF GAMMA NAIL Female, 47 years old. FINDINGS: Fracture ORIF. RAD/Hip Min 2 Views (Portable) IMPRESSION: Fluoroscopic assistance images were obtained. Dictation for documentation purposes only. Electronically Signed: German Kahn MD at 15:28 EDT ,
--- NOTE | 2023-09-28 10:05 | CONS.ORTHO ---
HPI Consult Data Date of Consult: 09/28/23 HPI Narrative Reason for Consultation: Left hip fracture HPI Narrative: AMEYA ALLEN, is a 47 F who presents after sustaining a fall September 27, 2023. Patient was at the [employer] festival. Reportedly she was accidentally bumped into by family member and she fell hard onto her left hip. Patient does say she has seen the chiropractor over the years for bilateral hip issues. She states the right and left hip have been equally bothersome over the years. She states that they seem to go in and out for her. She denies any recent pre-existing left hip pain. She has not been using a crutch cane or walker. She denies history of cancer. She does have a smoking history of greater than 1/2 pack/day for the last 30 years. More recently she has been smoking 1 to 2 packs a day. Also she drinks 2-3 alcoholic beverages per day. Patient denies any head injury or loss of consciousness after falling yesterday. She was not able to walk. She was inebriated. She was brought to the hospital. Diagnosed with a left hip fracture. Orthopedics consulted. [facility], [facility] Medical History Seizure in childhood Tobacco use Alcohol abuse Kidney stones COPD (chronic obstructive pulmonary disease) Hypertension Home Medications ?Medication ?Instructions ?Recorded ?Last Taken ?Type NK 09/28/23 Unknown History Allergy/AdvReac Type Severity Reaction Status Date / Time [place] And Derivatives AdvReac Itching Verified 09/27/23 23:09 tramadol (From Ultram) AdvReac Rash Verified 09/27/23 23:09 Family History Mother CAD (coronary artery disease) COPD (chronic obstructive pulmonary disease) Heart disease Hypertension Myocardial infarction Father Alcoholic cirrhosis of liver Alcohol abuse Surgical History History of hysterectomy Social History household members: family Smoking Status: Current every day smoker tobacco type: cigarettes Smoking packs per day: 1 Smoking cigarettes per day: 20.0 alcohol intake: current alcohol intake frequency: 3 or more drinks per day details: Notes at least 2-3, 12 ounce beers daily. 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 Otherwise she denies recent changes to eyes ears nose or throat. She does have COPD. She does have shortness of breath and a chronic cough. Denies any problems with bowel or bladder function. Vital Signs Vital Signs Vital Signs: 09/27/23 23:09 09/27/23 23:38 09/28/23 01:09 Temperature 97.1 F L Temperature Source Temporal Pulse Rate 78 68 Respiratory Rate 16 17 Blood Pressure 115/63 133/76 H Blood Pressure Mean 80 95 Blood Pressure Source Blood Pressure Position Blood Pressure Location Pulse Ox 98 98 Oxygen Delivery Method Room Air Room Air Room Air 09/28/23 01:09 09/28/23 02:50 09/28/23 07:38 Temperature 98 F Temperature Source Pulse Rate 68 Respiratory Rate 17 16 Blood Pressure 133/76 H Blood Pressure Mean 95 Blood Pressure Source Blood Pressure Position Blood Pressure Location Pulse Ox 97 95 95 Oxygen Delivery Method Room Air Room Air 09/28/23 08:30 Temperature 98.7 F Temperature Source Oral Pulse Rate 70 Respiratory Rate 16 Blood Pressure 148/70 H Blood Pressure Mean 96 Blood Pressure Source Monitor Blood Pressure Position Supine Blood Pressure Location Left Arm Pulse Ox 96 Oxygen Delivery Method Room Air Weight Weight: 43.1 kg Body Mass Index (BMI) 16.8 Physical Exam Narrative Left hip has shortening and external rotation. Left hip has pain on palpation. She had no calf pain or swelling bilaterally. Negative Homans' sign bilaterally. He is able to plantarflex and dorsiflex toes and ankles. Skin is intact about the left hip. She does have a very slight abrasion of the left knee. She has an abrasion at her elbow covered with a bandage. She has full range of motion left elbow. No pain with resisted strength testing left elbow. Arms and legs are neurovascular intact. X-rays AP and lateral of the left hip showed a displaced comminuted intertrochanteric fracture. There was a possible subtle lucency at the region. May be related to her fracture pattern, rule out pathologic fracture CT scan of the left hip was done to check for possibility of pathologic fracture. Based on my review of the images and the radiologist review, no definitive pathologic bone was seen. Dr. Padron also had reviewed the studies and felt that there was no definitive pathologic fracture Medications, allergies, review of systems on chart, laboratory work and chest x-rays and other studies reviewed and noted Lab / Micro Data 09/28/23 04:20 09/28/23 04:20 Labs: Laboratory Results - last 24 hr 09/27/23 23:40: WBC 9.8, RBC 4.48, Hgb 14.5, Hct 43.5, MCV 97.1, MCH 32.4 H, MCHC 33.3, RDW Std Deviation 44.6 H, RDW Coeff of Fahad 12.3, Plt Count 243, MPV 11.0, Immature Gran % (Auto) 0.200, Neut % (Auto) 43.8 L, Lymph % (Auto) 49.5 H, Dickenson % (Auto) 4.4, Eos % (Auto) 0.9, Baso % (Auto) 1.2 H, Absolute Neuts (auto) 4.3, Absolute Lymphs (auto) 4.84 H, Nucleated RBC % 0, PT 11.7, INR 0.9, APTT 23.3 L, Sodium 137, Potassium 3.6, Chloride 104, Carbon Dioxide 23.0, Anion Gap 10, BUN 9, Creatinine 0.84, Estim Creat Clear Calc 55.86, Est GFR (MDRD) Af Amer 93, Est GFR (MDRD) Non-Af 77, BUN/Creatinine Ratio 10.7, Glucose 105, Calcium 8.8, Phosphorus 3.4, Magnesium 2.3, Total Bilirubin 0.40, Direct Bilirubin 0.14, AST 28, ALT 23, Alkaline Phosphatase 74, Total Protein 7.3, Albumin 4.0, Globulin 3.3, Serum , Qual NEGATIVE, Ethyl Alcohol 294.0 09/28/23 01:52: Blood Type A POSITIVE, Antibody Screen NEGATIVE 09/28/23 04:20: WBC 12.8 H, RBC 3.94 L, Hgb 12.6, Hct 38.6, MCV 98.0, MCH 32.0, MCHC 32.6, RDW Std Deviation 44.4 H, RDW Coeff of Fahad 12.2, Plt Count 218, MPV 11.4, Immature Gran % (Auto) 0.500, Neut % (Auto) 66.7, Lymph % (Auto) 24.8, Dickenson % (Auto) 6.9, Eos % (Auto) 0.2, Baso % (Auto) 0.9, Absolute Neuts (auto) 8.6 H, Absolute Lymphs (auto) 3.18, Nucleated RBC % 0, Sodium 139, Potassium 3.8, Chloride 108 H, Carbon Dioxide 22.0, Anion Gap 9, BUN 8, Creatinine 0.74, Estim Creat Clear Calc 63.26, Est GFR (MDRD) Af Amer 108, Est GFR (MDRD) Non-Af 89, BUN/Creatinine Ratio 10.9, Glucose 95, Calcium 8.6, Total Bilirubin 0.50, AST 28, ALT 25, Alkaline Phosphatase 74, Total Protein 6.8, Albumin 3.7, Globulin 3.1, Albumin/Globulin Ratio 1.2 Imaging Radiology Impression Hip/Pelvis X-Ray 09/27/23 23:21 IMPRESSION: Displaced left intertrochanteric fracture. Electronically Signed: Jose Alberto Brown MD at 0:15 EDT , Lower Extremity CT 09/28/23 00:37 IMPRESSION: Intertrochanteric left femoral fracture with cephalad displacement Electronically Signed: Jose Alberto Brown MD at 2:19 EDT , Chest X-Ray 09/28/23 00:52 IMPRESSION: Chronic obstructive pulmonary disease. No radiographic evidence of acute cardiopulmonary process. Electronically Signed: Jose Alberto Brown MD at 3:17 EDT , Assessment & Plan Assessment/Plan (1) Closed intertrochanteric fracture of left femur: PLAN: Her diagnosis and treatment options regarding her left hip displaced comminuted intertrochanteric fracture discussed with her at length. She understands based on her young age, mechanism of injury, I was concerned about the possibility of a pathologic fracture. She understands based on her current x-rays and CT scan and history, most likely this is not a pathological fracture. This cannot be guaranteed however. I explained images have been reviewed by the ER physician, radiologist, myself as well as Dr. Padron. She understands we are planning to do reduction and internal fixation. She understands if this is not successful, further surgery could be warranted. She understands if there is significant osteoporosis, and/or underlying bone pathology, the fracture may not heal. Risk of surgery including but not limited to from operative or postoperative complications. Risk of anesthetic complications such as heart attacks, strokes, seizures, or . Risk of infections. Risk of damage to nerves arteries tendons. Risk of inadvertent fractures or dislocations. Risk of bone or wound healing complications. Possibility of nonunion malunion pain stiffness weakness. Possible need for further surgery such as hardware removal. Risk of DVT PE and other potential complications could lead to or disability explained. No guarantees were stated or implied. All of their questions were answered. Appropriate informed consent was obtained and signed for surgical intervention. Importance of her stopping smoking and diminishing her alcohol intake explained. She understands both of these can cause cancer. She understands that certainly smoking can delay bone healing leading to nonunions. I recommend she establish care with a primary care physician and obtain help stopping her alcohol and tobacco use. She understands and agrees. Will plan to use Ancef for preoperative antibiotic. We will plan to use aspirin postoperatively for DVT prevention.
[2023-09-28] MEDS: Budesonide Respules 0.5 MG/2 ML AMPUL.NEB. INHALATION ×2 (10:42→19:22)
[2023-09-28] MEDS: Cefazolin 1 GM/50 ML BAG IV (13:57)
--- NOTE | 2023-09-28 15:04 | OP.PCM_ITS ---
Problems Associated Problem List Diagnoses (1) Closed intertrochanteric fracture of left femur: Operative Report Date of Procedure: 09/28/23 Preoperative diagnosis: Left hip displaced intertrochanteric fracture Postoperative diagnosis: Same Title of operation: Left hip open reduction internal fixation, intramedullary nail fixation, locked Surgeon: Dr. Dion Mock [employer] Profiler: Nisreen Keith PA-C Anesthesia: General, LMA, Dr. Jean Medications: Ancef 1gm Fluids given: 500 cc EBL: 20 Indications for surgery: Patient is an 47 -year-old female sustained a hip fracture yesterday. Patient and their family explained diagnosis and treatment options. Patient evaluated by the medical services. Patient did wish to have surgery. Appropriate informed consent obtained and signed. Findings: Patient had a displaced unstable intertrochanteric hip fracture. They underwent standard reduction, internal fixation using a Mckinney short gamma nail. X-rays taken throughout. logistics assistant, physician assistant financial accountant, was utilized throughout the entire procedure. They were vital to the procedure from beginning to end. They help with patient transfer, patient padding and positioning, fracture reduction, maintenance of fracture reduction, internal fixation of implants, wound closure, bandage application, patient transfer. Without surgical technology instructor, surgical time would have been significantly increased and surgical outcome could have been less optimal. Procedure: Patient was taken to the operating room. Placed under a general anesthetic and transferred to the operating table with the help of the assistant financial accountant. With the help of the assistant financial accountant patient was prepped and padded for surgery. Operative side foot was well-padded and placed in the traction boot. Uninjured lower extremity was abducted and flexed out of harms way. MORELIA hose and SCDs utilized. Fluoroscopy was brought in. With the help of the assistant financial accountant and manipulation of the limb, reduction was nicely obtained as verified under AP lateral and oblique fluoroscopic images. . Operative hip/thigh was prepped padded draped in usual orthopedic sterile fashion for the procedure. Longitudinal incision was made just proximal to the greater trochanter. Taken through skin and subcutaneous tissue. Sharp awl was placed on the tip of the greater trochanter. Position verified under AP and lateral fluoroscopic images. This was then taken down inside the bone. Slightly bent ball-tipped guide linda was then placed from the tip of the greater trochanter into the intra-medullary canal of the femur. Its position verified radiographically. Reamer was then done over the tip of this with the help of the assistant financial accountant holding the soft tissue protector appropriately. Once reaming was done we placed the short 125? angle device over the guidepin. This was easily introduced. Guide linda removed. Ou trigger device was utilized to position a guidepin from the lateral cortex of the femur across the fracture site and into the femoral head in a good position centrally, as noted on AP lateral and oblique fluoroscopic images. This was measured. Secondary guidepin was placed anterior superiorly through the guide device to avoid rotation of the femoral head and neck. Appropriate reaming done. Appropriate length lag screw was placed from the lateral cortex of the femur into the femoral head. A small amount of the screw was noted to be protruding laterally as planned. No cartilage penetration of the femoral head noted on any x-ray. Secondary guidepin was removed. Fracture was then compressed with the outrigger device. Proximal cap screw was placed by the assistant financial accountant seated down completely, confirmed, and then loosened one fourth turn. We then used the outrigger device to place distal cross locking screw under standard technique. This was confirmed to be of adequate length in good p osition on AP and lateral images. Outrigger device removed. Final set of AP and lateral proximal x-rays taken and saved. Incisions thoroughly irrigated. Closing by the assistant financial accountant with deep 0 Vicryl, mid layer 0 Vicryl, inverted 2-0 Vicryl, skin ashli. Puncture wounds closed with inverted 2-0 Vicryl and ashli. Xeroform 4 x 4's ABD tape applied. Patient was awoken from their anesthetic, transferred back to their own bed with the help of the assistant financial accountant and into recovery room in satisfactory condition. Patient will continue to be admitted to the hospital under the hospitalist service. This note was generated with [employer] dictation software. It may contain incorrect words, spelling, and punctuation that were not noted in checking the note before signing.
[2023-09-28] MEDS: Aspirin 81 MG TAB.CHEW PO (17:01)
[2023-09-28] MEDS: Albuterol 2.5 MG/3 ML VIAL.NEB. INHALATION (19:22)
[2023-09-28] MEDS: Famotidine 20 MG Tablet PO (19:47)
[2023-09-28] MEDS: guaiFENesin/D-Methorphan TAB.SR.12H 2 TABLET PO (19:47)
[2023-09-28] MEDS: oxyCODONE 5 MG Tablet PO (19:47)
[2023-09-28] MEDS: Acetaminophen 325 MG Tablet 650 MG PO (19:47)
[2023-09-28] MEDS: Senna/Docusate Sodium 1 Tablet 2 TABLET PO (19:47)
[2023-09-29] VITALS (8 sets, daily range): BP systolic 126–146; BP diastolic 67–91; PULSE 73–97; RESP 14–18; TEMP 36.6–36.9; O2SAT 95–100; BMI 16.8
[2023-09-29] MEDS: Acetaminophen 325 MG Tablet 650 MG PO ×3 (00:42→11:05)
[2023-09-29] MEDS: oxyCODONE 5 MG Tablet PO ×4 (00:43→17:57)
[2023-09-29] MEDS: Cefazolin 1 GM/50 ML BAG IV ×2 (06:36→11:32)
[2023-09-29] MEDS: 0.9% Saline Lock 10 ML Syringe IV ×2 (06:36→15:10)
[2023-09-29] MEDS: Albuterol 2.5 MG/3 ML VIAL.NEB. INHALATION ×2 (06:59→12:04)
[2023-09-29] MEDS: Budesonide Respules 0.5 MG/2 ML AMPUL.NEB. INHALATION (06:59)
[2023-09-29 07:06] LABS: Absolute Lymphocyte Count 2.11 X10^3/uL (0.83-4.51); Absolute Neutrophil Count 3.8 X10^3/uL (2.0-7.7); Basophil# 0.06 X10^3/uL; Basophil% 0.9 % (0-1); Eosinophil# 0.04 X10^3/uL; Eosinophils% 0.6 % (0-5); Hematocrit 32.7 % (37-47); Hemoglobin 10.5 g/dL (12.0-15.0); Lymphocyte # 2.11 X10^3/ul (0.83-4.51); Lymphocyte % 30.9 % (19-41); Mean Corp Hgb Conc 32.1 g/dL (32-36); Mean Corpuscular Hgb 32.5 pg (27.0-32.0); Mean Corpuscular Volume 101.2 fL (81-99); Mean Platelet Vol. 12.1 fl (6.2-12.0); Monocyte# 0.75 X10^3/uL; NRBC Flagged by Analyzer 0 % (0-5); Neutrophil # 3.84 X10^3/uL (2.7-7.7); Neutrophil % 56.3 % (47-70); Platelet Count 151 K/mm3 (150-450); RBC Distribution Width CV 12.3 % (11.6-14.6); RBC Distribution Width SD 46.1 fl (35.1-43.9); Red Blood Count 3.23 M/mm3 (4.2-5.4); White Blood Count 6.8 K/mm3 (4.4-11.0)
[2023-09-29 07:24] LABS: Anion Gap 6 (5-15); BUN 7 mg/dL (7-18); BUN/Creat Ratio 10.2 RATIO (10-20); Calcium,Total 8.3 mg/dL (8.5-10.1); Chloride 106 mmol/L (98-107); Creatinine, Serum 0.69 mg/dL (0.55-1.02); EST Glomerular Filtration Rate 97 mL/min (>60); Est Glom Filt Rate - Afr Amer 117 mL/min (>60); Estimated Creatinine Clearance 67.84 ml/min; Glucose 99 mg/dL (74-106); Potassium 3.9 mmol/L (3.5-5.1); Sodium Level 136 mmol/L (136-145)
[2023-09-29] MEDS: Multivitamins,Ther W-Minerals Tablet 1 TABLET PO (07:57)
[2023-09-29] MEDS: Senna/Docusate Sodium 1 Tablet 2 TABLET PO (07:57)
[2023-09-29] MEDS: Thiamine Hydrochloride 100 MG Tablet PO (07:57)
[2023-09-29] MEDS: Folic Acid 1 MG Tablet PO (07:57)
[2023-09-29] MEDS: guaiFENesin/D-Methorphan TAB.SR.12H 2 TABLET PO (07:57)
[2023-09-29] MEDS: Aspirin 81 MG TAB.CHEW PO ×2 (07:58→15:57)
[2023-09-29] MEDS: Famotidine 20 MG Tablet PO (07:58)
--- NOTE | 2023-09-29 08:06 | PN.HOSP_ITS ---
Reason for Visit Reason for Visit: Diagnoses Displaced intertrochanteric fracture of left femur, initial encounter for closed fracture (09/28/23) Subjective Subjective Feeling well. Objective Data Objective Data Vital Signs: Vital Signs Temp Pulse Resp BP Pulse Ox O2 Del Method O2 Flow Rate 36.7 C 93 18 140/70 H 99 Room Air 2 09/29/23 04:48 09/29/23 07:00 09/29/23 07:00 09/29/23 04:48 09/29/23 07:00 09/29/23 07:00 09/29/23 00:48 Oxygen Flow Rate (L/min) 2 Oxygen Delivery Method Room Air Weight: 43.1 kg Body Mass Index (BMI) 16.8 Intake & Output: Intake and Output for Last 24 Hours 09/27/23 09/28/23 09/29/23 23:59 23:59 23:59 Intake Total 2550 / 2550 Output Total 950 / 1500 1050 / 1050 Balance 1600 / 1050 -1050 / -1050 Medical Nutrition Assessment Dietitian: Malnutrition Criteria Met Start: 09/28/23 10:06 Freq: Status: Active Protocol: Document 09/28/23 10:06 SLA (Rec: 09/28/23 10:06 SLA [email or web address]) Nutrition Malnutrition Evidence of Malnutrition Exists Yes Malnutrition (severe): Acute Illness/Injury Evidenced By Suboptimal Energy Intake ( Severe),Weight Loss (Severe), Physical Changes (Moderate) Clinical Problem Acute Disease or Injury Related Malnutrition Etiology related to inadequate energy intake Signs/Symptoms as evidenced by unintended wt loss of 9.7% and po intake 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 Has generalized fat/muscle wasting throughout body. Status Active Problem Recommendation Dietitian Recommendations/Changes Rec liberal regular diet when po diet resumes. When medically able, rec 120 ml ensure plus high protein 4x /day w/ medpass Lab / Micro Data 09/29/23 06:09 09/29/23 06:09 Labs: Laboratory Results - last 24 hr 09/29/23 06:09: WBC 6.8, RBC 3.23 L, Hgb 10.5 L, Hct 32.7 L, MCV 101.2 H, MCH 32.5 H, MCHC 32.1, RDW Std Deviation 46.1 H, RDW Coeff of Fahad 12.3, Plt Count 151, MPV 12.1 H, Immature Gran % (Auto) 0.300, Neut % (Auto) 56.3, Lymph % (Auto) 30.9, [place] % (Auto) 11.0 H, Eos % (Auto) 0.6, Baso % (Auto) 0.9, Absolute Neuts (auto) 3.8, Absolute Lymphs (auto) 2.11, Nucleated RBC % 0, Sodium 136, Potassium 3.9, Chloride 106, Carbon Dioxide 24.0, Anion Gap 6, BUN 7, Creatinine 0.69, Estim Creat Clear Calc 67.84, Est GFR (MDRD) Af Amer 117, Est GFR (MDRD) Non-Af 97, BUN/Creatinine Ratio 10.2, Glucose 99, Calcium 8.3 L Radiography Diagnostic Testing: Radiology Impression Hip/Pelvis X-Ray 09/27/23 23:21 IMPRESSION: Displaced left intertrochanteric fracture. Electronically Signed: Jose Alberto Brown MD at 0:15 EDT , Hip X-Ray 09/28/23 08:00 IMPRESSION: Fluoroscopic assistance images were obtained. Dictation for documentation purposes only. Electronically Signed: German Kahn MD at 15:28 EDT , Physical Exam Const alert and no apparent distress Constitutional Narrative: afebrile. non-toxic. HEENT head/scalp atraumatic and moist oral mucous membranes Resp normal respiratory effort Assessment & Plan Assessment/Plan (1) Closed intertrochanteric fracture of left femur: PLAN: Plan Left intertrochanteric femoral fracture with cephalad displacement: * s/p mechanical fall. * s/p left hip ORIF, IM nail fixation on 09/27. * PT/OT following operative intervention. CM consulted for discharge planning. * follow up with orthopaedics as outpt. * VTE prophylaxis with aspirin 81 mg twice daily for 30 days. Acute alcohol intoxication * POA. Alcohol level 294. * pt reports to normally drink 2-3 12-ounce beers/day. * thiamine and folate * PRN lorazepam for withdrawal symptoms. Vitamin D deficiency * 25-hydroxy vitamin D level is low at 11. Goal level would be 50. Will start at 50,000 units of ergocalciferol weekly for 8 weeks. Chronic conditions: * COPD with chronic active smoking 2 pack/day: stable. follow up with pulmonary as outpt. * Chronic essential hypertension: fair control. VTE prophylaxis: ASA BID.
[2023-09-29] MEDS: Morphine 4 MG/ML Syringe IV ×2 (08:08→15:09)
--- NOTE | 2023-09-29 12:40 | CASEMGMT ---
LY CAMPA Assessment: Face to Face with pt for initial transition planning/care coordination assessment. RN LOKESH introduced self and role at [facility], pt voices understanding and consents to assessment. Pt sitting up in chair in no distress. Pt is A&O x4 and answers all questions appropriately at this time. Care providers, pharmacy, and demographics verified/updated. Admitting Dx: Fall, L Hip Fracture PCP: Kaylen, would like to switch to local PCP since she just moved recently to this area, was provided list of PCPs in-network with [facility]. Specialists: Pt Denies Preferred Pharmacy: [facility]: yes LNOK: Erin - daughter, Manny Mock - Boyfriend Living Arrangements: Pt going to boyfriends upon DC to a 2 story home with 2 steps to enter. Pt states bedroom and bathroom are on the first floor. Pt states I with ADLs and IADLs prior to fall and injury. Transportation: Pt drives self, boyfriend able to drive her until she can drive self again. DME:Nebulizer, Shower chair, Walker, Rollator, Cane, Hospital Bed, Grab bars. Denies need for other DME at this time. HHC/SNF: Hx of HHC - cannot recall what agency used. Denies Hx of SNF. Discussed DC planning and options, pt states she feels safe DC to boyfriend's home stating him and her daughter will be able to assist her. Declines HHC. Pt states she has not worked with therapy on steps yet or getting in and out of vehicle and would like to do so before discharging. Therapy made aware and will see pt later today before she goes home to work on these things. Pt states she would like a script for out-patient therapy which was provided at this time. Provided verbal list of local outpatient therapy facilities in the area, she would like to schedule herself upon DC. Pt stated she smokes 2 packs a day, drinks about 2 beers a day after work, denies use of street drugs accept for vaping occasionally. Accepted alcohol cessation resources, SW made aware. Pt states no further concerns/needs. CM to follow. Advised pt to ask CM if any further question/concerns/needs arise, voices understanding. Pt Goal: Home with outpatient therapy. Plan: Home with outpatient therapy. Rene MODI CM
--- NOTE | 2023-09-29 12:46 | CASEMGMT ---
Discharge Planning A list of PCP providers including quality and resource use data and consistent with the patient's preferred geographic region, medical needs was created from the [facility] website.? This list was provided to the RN CM. Jessi Camara, Discharge Planning Asst.
--- NOTE | 2023-09-29 12:51 | PCM.PN.ORT ---
Subjective Subjective Patient sitting at bedside. Reports her pain has been very well-managed, has very minimal pain at this time. Patient reports she has been up ambulating with therapy. Patient denies any chest pain, shortness of breath, calf pain, nausea vomiting. Patient is anticipating having to do therapy inpatient. Objective Data Objective Data Vital Signs: Vital Signs Temp Pulse Resp BP Pulse Ox O2 Del Method O2 Flow Rate 98 F 80 14 132/81 H 99 Room Air 2 09/29/23 11:27 09/29/23 12:04 09/29/23 12:04 09/29/23 11:27 09/29/23 11:27 09/29/23 11:27 09/29/23 00:48 Oxygen Flow Rate (L/min) 2 Oxygen Delivery Method Room Air Weight: 43.1 kg Body Mass Index (BMI) 16.8 Intake & Output: Intake and Output for Last 24 Hours 09/27/23 09/28/23 09/29/23 23:59 23:59 23:59 Intake Total 2550 / 2550 350 / 350 Output Total 950 / 1500 1050 / 1050 Balance 1600 / 1050 -700 / -700 Medical Nutrition Assessment Dietitian: Malnutrition Criteria Met Start: 09/28/23 10:06 Freq: Status: Active Protocol: Document 09/28/23 10:06 SHABBIR (Rec: 09/28/23 10:06 SHABBIR [id number]) Nutrition Malnutrition Evidence of Malnutrition Exists Yes Malnutrition (severe): Acute Illness/Injury Evidenced By Suboptimal Energy Intake ( Severe),Weight Loss (Severe), Physical Changes (Moderate) Clinical Problem Acute Disease or Injury Related Malnutrition Etiology related to inadequate energy intake Signs/Symptoms as evidenced by unintended wt loss of 9.7% and po 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 Has generalized fat/muscle wasting throughout body. Status Active Problem Recommendation Dietitian Recommendations/Changes Rec liberal regular diet when po diet resumes. When medically able, rec 120 ml ensure plus high protein 4x /day w/ medpass Lab / Micro Data 09/29/23 06:09 09/29/23 06:09 Labs: Laboratory Results - last 24 hr 09/29/23 06:09: WBC 6.8, RBC 3.23 L, Hgb 10.5 L, Hct 32.7 L, MCV 101.2 H, MCH 32.5 H, MCHC 32.1, RDW Std Deviation 46.1 H, RDW Coeff of Fahad 12.3, Plt Count 151, MPV 12.1 H, Immature Gran % (Auto) 0.300, Neut % (Auto) 56.3, Lymph % (Auto) 30.9, [place] % (Auto) 11.0 H, Eos % (Auto) 0.6, Baso % (Auto) 0.9, Absolute Neuts (auto) 3.8, Absolute Lymphs (auto) 2.11, Nucleated RBC % 0, Sodium 136, Potassium 3.9, Chloride 106, Carbon Dioxide 24.0, Anion Gap 6, BUN 7, Creatinine 0.69, Estim Creat Clear Calc 67.84, Est GFR (MDRD) Af Amer 117, Est GFR (MDRD) Non-Af 97, BUN/Creatinine Ratio 10.2, Glucose 99, Calcium 8.3 L 09/29/23 08:50: Vitamin D 25-Hydroxy 11.0 Radiography Diagnostic Testing: Radiology Impression Hip X-Ray 09/28/23 08:00 IMPRESSION: Fluoroscopic assistance images were obtained. Dictation for documentation purposes only. Electronically Signed: German Kahn MD at 15:28 EDT , Physical Exam Narrative Upon entering the room I found patient sitting at bedside. Patient alert oriented. Patient speaking in full sentences with no respiratory distress. Full range of motion the upper extremities without limitations. Full range of motion the right hip knee and ankle without pain. Left hip has a clean dry intact dressing. She has good flexion of the hip with minimal discomfort. Good flexion-extension of left knee ankle and foot. No calf tenderness. Neurovascular is otherwise intact. Const alert and oriented x3 General Appearance: cooperative HEENT normocephalic Eyes PERRL Resp normal respiratory effort Effort and Inspection: able to speak in complete sentences Extremity normal capillary refill Skin no rashes or lesions noted Neuro CN's II-XII intact bilaterally Motor Exam: strength 5/5 throughout and muscle tone normal throughout Psych mental status grossly normal and affect normal Assessment & Plan Assessment/Plan (1) Closed intertrochanteric fracture of left femur: PLAN: 1. Continue all pain medications as prescribed 2. Aspirin 81 mg 1 p.o. every 12 hours x 30 days for postop DVT prophylaxis 3. Encourage incentive spirometry 4. 50% weightbearing with walker 5. Continue physical therapy 6. Ice to left hip, SCDs while sitting or in bed. MORELIA hose on during the day off at night 7. Patient can shower 10/01/2023 8. Staple removal 10/11/2023 9. Discharge when cleared with medicine 10. Follow-up with Dr. Mock in 2 weeks call for an appointment
--- NOTE | 2023-09-29 13:02 | PCM.DC.SUM ---
Providers Date of Admission: 09/28/23 Primary Care Physician: Out [facility] Doctor Consultations 09/28/23 03:02 Consult: Orthopedics Routine Consulting Provider: Dion Mock Reason for Consult: Fall, L hip fracture EMERGENT Consult: No MD Notified: Yes Date Notified: 09/28/23 Time Notified: 00:29 Method of Notification: ED Physician Initiated Reason For Visit: FALL, L HIP FRACTURE Diagnosis Discharge Diagnosis (1) Closed intertrochanteric fracture of left femur: Status: Acute Code(s): S72.142A - Displaced intertrochanteric fracture of left femur, initial encounter for closed fracture Plan Left intertrochanteric femoral fracture with cephalad displacement: s/p mechanical fall. s/p left hip ORIF, IM nail fixation on 09/27. PT/OT following operative intervention. CM consulted for discharge planning. follow up with orthopaedics as outpt. VTE prophylaxis with aspirin 81 mg twice daily for 30 days. Acute alcohol intoxication POA. Alcohol level 294. pt reports to normally drink 2-3 12-ounce beers/day. thiamine and folate PRN lorazepam for withdrawal symptoms. Vitamin D deficiency 25-hydroxy vitamin D level is low at 11. Goal level would be 50. Will start at 50,000 units of ergocalciferol weekly for 8 weeks. Chronic conditions: COPD with chronic active smoking 2 pack/day: stable. follow up with pulmonary as outpt. Chronic essential hypertension: fair control. VTE prophylaxis: ASA BID. Medications at Discharge Home Medications NK 09/28/23 acetaminophen 325 mg tablet 1,000 mg (3.0769 x 325 mg) PO Q6H PRN PRN Fever, pain 1-10/10 10 days #30 tabs 09/29/23 aspirin 81 mg chewable tablet 81 mg PO BIDCM 30 days #60 tabs 09/29/23 ergocalciferol (vitamin D2) 1,250 mcg (50,000 unit) capsule 50,000 unit PO QWEEK 2 months #8 caps 09/29/23 multivitamin 1 tab PO DAILY #30 tabs 09/29/23 oxycodone 5 mg tablet 5 mg PO Q6H PRN pain 3 days #12 tabs 09/29/23 Hospital Course Operations - (ORIF, intramedullary nail fixation of left hip.) Procedures None Summary of Care Provided Minutes Spent on Discharge: 32 Hospital Course: Patient [place] the [place]. Patient had a left hip fracture. Patient underwent an ORIF with intramedullary nail fixation on the second. Patient did well with therapy and will be going home with outpatient therapy. Patient's vitamin D level was low at 11. Patient will be on ergocalciferol. Patient follow-up with orthopedics as outpatient. Medical Records Data Medical Nutrition Assessment Dietitian: Malnutrition Criteria Met Start: 09/28/23 10:06 Freq: Status: Active Protocol: Document 09/28/23 10:06 [facility] (Rec: 09/28/23 10:06 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 Has generalized fat/muscle wasting throughout body. Status Active Problem Recommendation Dietitian Recommendations/Changes Rec liberal regular diet when po diet resumes. When medically able, rec 120 ml ensure plus high protein 4x /day w/ medpass Weight / BMI Weight Weight: 43.1 kg Body Mass Index (BMI) 16.8 ABG / Lab / Microbiology Data 09/29/23 06:09 09/29/23 06:09 Laboratory: Laboratory Results - last 24 hr 09/29/23 06:09: WBC 6.8, RBC 3.23 L, Hgb 10.5 L, Hct 32.7 L, MCV 101.2 H, MCH 32.5 H, MCHC 32.1, RDW Std Deviation 46.1 H, RDW Coeff of Fahad 12.3, Plt Count 151, MPV 12.1 H, Immature Gran % (Auto) 0.300, Neut % (Auto) 56.3, Lymph % (Auto) 30.9, [place] % (Auto) 11.0 H, Eos % (Auto) 0.6, Baso % (Auto) 0.9, Absolute Neuts (auto) 3.8, Absolute Lymphs (auto) 2.11, Nucleated RBC % 0, Sodium 136, Potassium 3.9, Chloride 106, Carbon Dioxide 24.0, Anion Gap 6, BUN 7, Creatinine 0.69, Estim Creat Clear Calc 67.84, Est GFR (MDRD) Af Amer 117, Est GFR (MDRD) Non-Af 97, BUN/Creatinine Ratio 10.2, Glucose 99, Calcium 8.3 L 09/29/23 08:50: Vitamin D 25-Hydroxy 11.0 Radiography Diagnostic Testing: Radiology Impression Hip X-Ray 09/28/23 08:00 IMPRESSION: Fluoroscopic assistance images were obtained. Dictation for documentation purposes only. Electronically Signed: German Kahn MD at 15:28 EDT Reading Location ID and State: [facility] / [place] , Service support , D/C Instructions Discharge Diet: No restrictions Discharge Activity: Use Walker Weight Bearing Status: - (50% weightbearing to the left lower extremity with a walker.) Keep extremity elevated above heart level: Left Leg Meaningful Use Info Meaningful Use Meaningful Use Diagnoses (Choose all that apply): None applicable Ischemic Stroke Statin Dosing Therapy Reference: STATIN DOSE THERAPY REFERENCE: * Patients > 75 years receive moderate or high dose statin therapy. * Patients 75 years or YOUNGER should receive HIGH intensity statin dose unless contraindicated. You will be required to document reason for non-treatment if statin daily dose does not meet guidelines. HIGH DOSE STATIN THERAPY DAILY Atorvastatin > than or = to 40 mg Rosuvastatin > than or = to 20 mg Amlodipine + Atorvastatin > than or = to 2.5/40 mg Ezetimibe + Simvastatin 10/80 mg Simvastatin 80mg Discharge Plan Admission Admit Date/Time: 09/28/23 00:26 Primary Reason for Your Visit: Left hip fracture Attending Provider: Carter Dangelo Primary Care Provider: [facility] Doctor,Out of Consulting Providers: Katie Darling; Dion Mock; Stephon Wagner; KARTHIK OCHOA Instructions Additional Instructions / Restrictions: 50% weightbearing to the your left leg. Use a walker with ambulation. Follow-up with outpatient therapy. Follow-up with Dr. Mock in 2 weeks. Your vitamin D level was low and you will be on vitamin D replacements which will be weekly for 8 weeks. Discharge Orders/Prescriptions Prescriptions: New acetaminophen 325 mg Tablet 1,000 mg PO Q6H PRN PRN (Reason: Fever, pain 1-02/04) 10 Days Qty: 30 0RF aspirin 81 mg Tablet,Chewable 81 mg PO BIDCM 30 Days Qty: 60 0RF multivitamin Tablet 1 tab PO DAILY Qty: 30 0RF ergocalciferol (vitamin D2) 1,250 mcg (50,000 unit) capsule 50,000 unit PO QWEEK 60 Days Qty: 8 0RF oxycodone 5 mg tablet 5 mg PO Q6H PRN (Reason: pain) 3 Days Qty: 12 0RF No Action NK Referrals / Follow Up: [facility] Doctor,Out of [Primary Care Provider] - Within 2 Weeks Dion Mock MD [Med Staff - Active Staff] - Within 2 Weeks Disposition Disposition (needs filled in before D/C Order can be placed): Home, Self Care Charges/Coding Visit Charges Inpatient E&M: 61511 Disch Hosp >30min
[2023-09-29] MEDS: LORazepam 1 MG Tablet 2 MG PO (15:56)
== END 2023-09-29 18:41 | disposition home or self-care (01) | DRG 308 ==
LOC: ED 09-28 00:11 → MS3 09-28 00:43
PROVIDERS: Internal Medicine; Orthopaedic Surgery; Admitting Provider Family Medicine; Emergency Provider Emergency Medicine
PROC: 0QS706Z Reposition Left Upper Femur with Intramedullary Internal Fixation Device, Open Approach (ICD-10-PCS; CPT 27245; principal; 2023-09-28 13:00)
DX: S72.142A Displaced intertrochanteric fracture of left femur, initial encounter for closed fracture (principal); E55.9 Vitamin D deficiency, unspecified; J44.9 Chronic obstructive pulmonary disease, unspecified; I10 Essential (primary) hypertension; S50.312A Abrasion of left elbow, initial encounter; S80.212A Abrasion, left knee, initial encounter; F17.210 Nicotine dependence, cigarettes, uncomplicated; W18.30XA Fall on same level, unspecified, initial encounter; F10.129 Alcohol abuse with intoxication, unspecified; R63.6 Underweight; Z68.1 Body mass index [BMI] 19.9 or less, adult; Y90.8 Blood alcohol level of 240 mg/100 ml or more; Y92.89 Other specified places as the place of occurrence of the external cause; Z86.69 Personal history of other diseases of the nervous system and sense organs
CPT/HCPCS: 36415; 71045; 73502; 73700; 76000; 80048; 80053; 80076; 80320; 82306; 83735; 84100; 84703; 85025; 85610; 85730; 86850; 86900; 86901; 93005; 94640; 94668; 97162; 97166; 97530; 99284; C1776; J7030; A4216; G0480; J2405

== ENCOUNTER 2024-01-12 16:30 | Outpatient (RCR) | payer MEDICAID, SELFPAY ==
--- NOTE | 2023-10-09 17:08 | HP.PTEVAL ---
Patient's Visit Information Visit Information Visit Information: AMEYA ALLEN is a 47 year old F referred to Physical Therapy by Dr. Carter Dangelo DO with a diagnosis of LEFT HIP FRACTURE. Date of Evaluation: 10/09/23 Physical Therapist: Dirk Nixon, PT, Cert MDT, OCS Visit Plan Frequency: 2x /Week Duration: 6 Weeks Plan: S/P ORIF HIP FWW 50% LLE PT INTERVENTIONS PROGRESSIVE GAIT TRAINING/BALANCE TRAINING ,ROM , STRENGTHENING EX'S HIP/QUADS/HAMS ,FUNCTIONAL STRENGTHENING AND ENDURANCE EX'S Subjective Subjective: This 47 y/o female presents to physical therapy with left hip fracture . Patient was at fair fell and landed on left hip . Patient went to ER did x-rays Displaced left intertrochanteric fracture 09/27/23 Patient underwent s/p ORIF in 09/28/[address] Mock [facility] . Patient d/c to home with fww 50% LLE .Patient has pain pain lateral hip . Denies paresthesia/tingling. Medication hydrocodone.Patient sleeping in bed. Patient has pain with walking/standing .Patient needs assist with dressing socks /shoes. Friend does cooking. Patient has a w/c and has FWW in home. Patient lives 2 story home with one step with tub/shower grab rails. Patient condition affects QOL and function/gait. Patient goals to walk normal and RTW . VOCATION: [employer] SOCAIL: single Pain Left Hip: Pain Intensity (Out of 10): 4 Pain Intensity Range: 10 Objective Objective: POSTURE:mild forward posture INCISION: well approximate dressing intact NEURO: denies paresthesia/tingling GAIT: ambulates with 50% LLE with fww BALANCE: fair with fw AROM: supine knee flexion 90 degrees ,abduction 25 degrees ,knee flexion 0-125 degrees MMT: ( peak force) quads 6.8 ,hamstrings 10.8 ,hip flexion 0 ,hip abduction 0 ankle 4/5 Balance/Special Test Scores Lower Extremity Functional Score: 7 Goals Goal 1:: Patient to be I with HEP hip Goal Time Frame: 4-6 Weeks Goal 2:: Patient to ambulate with/without cane with improve gait pattern Goal Time Frame: 4-6 Weeks Goal 3:: Patient to increase strength peak force quads/hams/hip by 10-15 # to improve function and gait Goal Time Frame: 4-6 Weeks Goal 4:: Patient to improve AROM hip by 10-15 degrees to improve stairs Goal Time Frame: 4-6 Weeks Goal 5:: Patient to improve LFES score by 5 -10 points to improve QOL and function Goal Time Frame: 4-6 Weeks Goal 6:: Patient to demonstrate 60% improvement with increase function Goal Time Frame: 4-6 Weeks Rehabilitation Potential Physical Therapy Diagnosis: This patient had left displaced intertrochanteric fracture 09/27/23 Patient underwent s/p ORIF in 09/28/23 with 50% ,pain ,weakness ,decrease ROM impairs gait and function/RTW thus benefit from skilled PT Rehabilitation Potential: Good Anticipated Interventions Patient/Client Instruction: Educate patient on: Condition and Plan of Care For the Purpose of:: To decrease pain, To increase ROM, To improve muscle performance and motor function, To improve ability to perform ADL's, To increase tolerance to activity/condition/position, To improve performance and independence with ADL's, To improve ability of physical actions for home/community/work/leisure, To improve gait and locomotor functions, To improve health of tissue, To decrease soft tissue restriction, To increase flexibility/ROM, To improve endurance, To improve balance, To improve safety with gait and To improve tolerance to ADL's Therapeutic Exercise to Include: Strength training, Endurance training, Balance training, Postural training, Flexibilty training and Active ROM Comment: QUADS/HAMS/HIP For the Purpose of:: To decrease pain, To increase ROM, To improve muscle performance and motor function, To improve ability to perform ADL's, To increase tolerance to activity/condition/position, To improve ability of physical actions for home/community/work/leisure, To improve gait and locomotor functions, To improve health of tissue, To decrease soft tissue restriction, To increase flexibility/ROM, To improve endurance and To improve tolerance to ADL's Text: Thank you for the opportunity to evaluate your patient. For Medicare and Medicare HMO plans, please review the plan of care and approve it. It will need to be FAXED BACK to us at [phone] for Medicare purposes. For Medicare only, by signing this I certify the plan of care. Please let me know if there are questions or concerns regarding this plan of care. Physician Signature: Date:
--- NOTE | 2024-01-12 16:57 | HP.PTDCSUM ---
Discharge Summary D/C summary: It has been my pleasure to treat AMEYA ALLEN referred by Dr. Carter Dangelo DO, with the diagnosis of LEFT HIP FRACTURE for a total of 23 visit(s). Discharge Date: 01/12/24 Please see the following information for a summary of their discharge status. Subjective Subjective: Plan to see DR Ryan Had a fall last Wed Patient wished to go hiking . RTW part-time Pain Left Hip: Pain Intensity (Out of 10): 1 Overall Improvement % Improvement: 70 Objective Objective/Function: GAIT: Ambulates with reciprocal pattern MMT: quads 33.4,quads 42.1 hamstrings 39.1,hip abd 22.1 STAIRS : alternating Goals Goal 1:: Patient to be I with HEP hip Goal Progress: Goal Met Goal 2:: Patient to ambulate with/without cane with improve gait pattern Goal Progress: Goal Met Goal 3:: Patient to increase strength peak force quads/hams/hip by 10-15 # to improve function and gait( NEW GOAL) Goal Progress: Goal Met Goal 4:: Patient to improve AROM hip by 10-15 degrees to improve stairs Goal Progress: Goal Met Goal 5:: Patient to improve LFES score by 5 -10 points to improve QOL and function Goal Progress: Goal Met Goal 6:: Patient to demonstrate 80% improvement with increase function ( NE GOALS Goal Progress: Goal Met Plan Plan: D/C D/C Information Discharge Comments: HEP d/c sentence: If there are questions or concerns regarding this patient's physical therapy, please feel free to call me at [phone]. Thank you for the referral of this patient. Sincerely, Dirk Nixon, PT, Cert MDT, OCS Balance/Gait/Functional tests Balance/Special Test Scores Lower Extremity Functional Score: 59 Improvement % Improvement: 70
== END 2024-01-12 19:00 | disposition home or self-care (01) ==
LOC: PT 16:30
DX: S72.002D Fracture of unspecified part of neck of left femur, subsequent encounter for closed fracture with routine healing (principal)
CPT/HCPCS: 97014; 97110; 97162; 97530; G0283